=== PATIENT | female | born 1970 | race Caucasian/White ===

== ENCOUNTER 2018-11-05 16:30 | Inpatient (IN) | payer BC ==
[2018-11-05 22:35] VITALS: BMI 22.8
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
[2018-11-06] MEDS ORDERED: MAG HYDROX/AL HYDROX/SIMETH 30 ML UNIT-DOSE CUP PO PRN (00:05)
[2018-11-06] MEDS ORDERED: MAGNESIUM HYDROX 2400MG/30ML ORAL SUSPENSION 30 ML CUP PO PRN (00:05)
[2018-11-06] MEDS ORDERED: MELATONIN 5 MG TABLETS PO PRN (00:05)
[2018-11-06] MEDS ORDERED: hydrOXYzine HCL 25 MG TABLET (FP) PO PRN (00:05)
[2018-11-06] MEDS ORDERED: BISMUTH SUBSALICYLATE 524 MG/30 ML UD PO PRN (00:05)
[2018-11-06] MEDS ORDERED: guaiFENesin 200 MG/10 ML 10 ML UNIT-DOSE CUPS PO PRN (00:05)
[2018-11-06] MEDS ORDERED: MAGNESIUM CITRATE 300 ML BOTTLE PO PRN (00:05)
[2018-11-06] MEDS ORDERED: DICYCLOMINE HCL 10 MG CAPSULE PO PRN (00:05)
[2018-11-06] MEDS ORDERED: NALOXONE HCL 0.4 MG/ML VIAL IM PRN (00:05)
[2018-11-06] MEDS ORDERED: ACETAMINOPHEN 325 MG TABLET (FP) PO PRN ×2 (00:05)
[2018-11-06] MEDS ORDERED: METHADONE HCL 10 MG TABLET (FOR DETOX USE ONLY) PO ONE (00:05)
[2018-11-06] MEDS ORDERED: NICOTINE POLACRILEX 2 MG GUM BUC PRN (00:05)
[2018-11-06] MEDS ORDERED: ONDANSETRON *ODT* 4 MG TABLET SL PRN (00:05)
[2018-11-06] MEDS ORDERED: P-EPHED 60MG/TRIPROLIDI 2.5MG TABLET PO PRN (00:05)
[2018-11-06] MEDS ORDERED: MENTHOL/PHENOL 1 EACH UD MM PRN (00:05)
[2018-11-06] MEDS ORDERED: cloNIDine HCL 0.1 MG TABLET PO PRN (00:05)
[2018-11-06] MEDS: diazePAM 5 MG TABLET PO PRN ×3 (00:59→16:27)
[2018-11-06] MEDS: IBUPROFEN 400 MG TABLET (FP) PO PRN ×3 (05:39→22:20)
[2018-11-06] MEDS: diazePAM 5 MG TABLET PO SCH ×3 (05:40→22:20)
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
[2018-11-06] MEDS ORDERED: METHADONE HCL 10 MG TABLET PO ONE (10:00)
[2018-11-06] MEDS: levETIRAcetam 500 MG TABLET (FP) PO SCH (10:11)
[2018-11-06] MEDS: PRENATAL VITAMINS W/ FOLIC ACID TABLET (FP) PO SCH (10:12)
[2018-11-06] MEDS: NICOTINE 7 MG/24 HOURS TOPICAL PATCH TD SCH (10:12)
[2018-11-06] MEDS: FLUoxetine HCL 20 MG CAPSULE (FP) PO SCH (10:31)
--- NOTE | 2018-11-06 10:33 | EKG ---
Test Reason : Blood Pressure : / mmHG Vent. Rate : 080 BPM Atrial Rate : 080 BPM P-R Int : 114 ms QRS Dur : 078 ms QT Int : 400 ms P-R-T Axes : 000 063 031 degrees QTc Int : 461 ms NORMAL SINUS RHYTHM NORMAL ECG NO PREVIOUS ECGS AVAILABLE Confirmed by BRYAN LUZ MD ([id number]) on 11/06/2018 10:33:42 AM Referred By: ALFONSO Confirmed By:BRYAN LUZ MD
[2018-11-06 11:44] LABS: HEMATOCRIT 35.5 % (32.4-45.2); HEMOGLOBIN 11.4 GM/dL (10.7-15.3); MCH 27.5 pg (25.7-33.7); MCHC 32.1 g/dl (32.0-36.0); MEAN CELL VOLUME 85.7 fl (80-96); MEAN PLT VOLUME 10.1 fl (7.5-11.1); PLATELET COUNT 222 K/MM3 (134-434); RBC 4.14 M/mm3 (3.60-5.2); RDW 13.9 % (11.6-15.6); WHITE BLOOD COUNT 3.8 K/mm3 (4.0-10.0)
[2018-11-06 11:47] LABS: ALBUMIN 3.4 g/dl (3.4-5.0); BILIRUBIN,TOTAL 0.5 mg/dL (0.2-1); BLOOD UREA NITROGEN 21.8 mg/dL (7-18); POTASSIUM 4.4 mmol/L (3.5-5.1); TOT PROT 7.1 g/dl (6.4-8.2)
--- NOTE | 2018-11-06 12:43 | PN ---
[facility] CIWA - CIWA Score Nausea/Vomitin-No Nausea/No Vomiting Muscle Tremors: 4-Moderate,w/Arms Extend Anxiety: 3 Agitation: 4-Moderately Restless Paroxysmal Sweats: 3 Orientation: 0-Oriented Tacttile Disturbances: 0-None Auditory Disturbances: 0-None Visual Disturbances: 0-None Headache: 0-None Present CIWA-Ar Total Score: 14 BHS COWS - Scale Resting Pulse: 1= MD 81-100 Sweatin= Chills/Flushing Restless Observation: 1= Difficult to Sit Still Pupil Size: 0= Normal to Room Light Bone or Joint Aches: 2= Severe Diffuse Aches Runny Nose/ Eye Tearin= Runny Nose/Eyes GI Upset > 30mins: 2= Nausea/Diarrhea Tremor Observation of Outstretched Hands: 2= Slight Tremor Visible Yawning Observation: 2= >3x During Session Anxiety or Irritability: 2=Irritable/Anxious Goose Flesh Skin: 0=Smooth Skin COWS Score: 15 [facility] Progress Note (SOAP) Subjective: sweats shakes interrupted sleep body aches restless irritable Objective: 11/06/18 12:43 Vital Signs Temperature 97.9 F 11/06/18 09:45 Pulse Rate 84 11/06/18 09:45 Respiratory Rate 18 11/06/18 09:45 Blood Pressure 115/49 L 11/06/18 09:45 O2 Sat by Pulse Oximetry (%) Laboratory Tests 11/06/18 11/06/18 07:30 07:30 WBC 3.8 L RBC 4.14 Hgb 11.4 Hct 35.5 MCV 85.7 MCH 27.5 MCHC 32.1 RDW 13.9 Plt Count 222 MPV 10.1 Sodium 141 Potassium 4.4 Chloride 108 H Carbon Dioxide 28 Anion Gap 6 L BUN 21.8 H Creatinine 1.0 Est GFR (CKD-EPI)AfAm 76.61 Est GFR (CKD-EPI)NonAf 66.10 Random Glucose 113 H Calcium 9.0 Total Bilirubin 0.5 AST 62 H ALT 55 Alkaline Phosphatase 88 Total Protein 7.1 Albumin 3.4 aaox3 ambulating no acute distress Assessment: 11/06/18 12:43 withdrawals sx Plan: continue detox increase fluids
[2018-11-06] MEDS: METHOCARBAMOL 500 MG TABLET PO PRN ×2 (16:27→22:44)
[2018-11-06] MEDS ORDERED: THIAMINE HCL 100 MG TABLET (FP) PO SCH (22:00)
[2018-11-06] MEDS ORDERED: SUVOREXANT 10 MG TABLET PO PRN (22:00)
[2018-11-07] MEDS ORDERED: diazePAM 5 MG TABLET PO SCH (06:00)
[2018-11-07] MEDS: METHOCARBAMOL 500 MG TABLET PO PRN (06:02)
[2018-11-07] MEDS ORDERED: IBUPROFEN 600 MG TABLET (FP) PO PRN (08:24)
[2018-11-07] MEDS ORDERED: METHADONE HCL 10 MG TABLET (FOR DETOX USE ONLY) ONE (08:43)
[2018-11-07] MEDS ORDERED: METHADONE HCL 5 MG TABLET (FOR DETOX USE ONLY) ONE (08:43)
[2018-11-07 09:42] VITALS: BP 121/80; PULSE 84; TEMP 97.3
[2018-11-07] MEDS ORDERED: METHADONE (DETOX) 20 MG, METHADONE (DETOX) 5 MG PO ONE (10:00)
[2018-11-07] MEDS: levETIRAcetam 500 MG TABLET (FP) PO SCH (10:11)
[2018-11-07] MEDS: FLUoxetine HCL 20 MG CAPSULE (FP) PO SCH (10:11)
[2018-11-07] MEDS: PRENATAL VITAMINS W/ FOLIC ACID TABLET (FP) PO SCH (10:11)
[2018-11-07] MEDS: NICOTINE 7 MG/24 HOURS TOPICAL PATCH TD SCH (10:12)
--- NOTE | 2018-11-07 12:52 | PN ---
[facility] Progress Note Note: pt was admitted in withdrawals pt continue to c/o of withdrawals and aggressive symptomatic management attempted however, pt in spite of extensive motivational counseling regarding overdose, loss of tolerance and relapse pt chose to sign out AMA.
--- NOTE | 2018-11-07 12:54 | DS ---
[facility] Detox Discharge Summary Admission Date: 11/05/18 - History Present History: Cocaine Dependence, Opioid Dependence - Physical Exam Results Vital Signs: Vital Signs Temperature 97.3 F L 11/07/18 09:41 Pulse Rate 84 11/07/18 09:41 Respiratory Rate 18 11/07/18 09:41 Blood Pressure 121/80 11/07/18 09:41 O2 Sat by Pulse Oximetry (%) Pertinent Admission Physical Exam Findings: pt arrived in withdrawals Laboratory Tests 11/05/18 11/06/18 11/06/18 23:18 07:30 07:30 WBC 3.8 L RBC 4.14 Hgb 11.4 Hct 35.5 MCV 85.7 MCH 27.5 MCHC 32.1 RDW 13.9 Plt Count 222 MPV 10.1 Sodium 141 Potassium 4.4 Chloride 108 H Carbon Dioxide 28 Anion Gap 6 L BUN 21.8 H Creatinine 1.0 Est GFR (CKD-EPI)AfAm 76.61 Est GFR (CKD-EPI)NonAf 66.10 Random Glucose 113 H Calcium 9.0 Total Bilirubin 0.5 AST 62 H ALT 55 Alkaline Phosphatase 88 Total Protein 7.1 Albumin 3.4 POC Urine HCG, Qual Negative RPR Titer 11/06/18 07:30 WBC RBC Hgb Hct MCV MCH MCHC RDW Plt Count MPV Sodium Potassium Chloride Carbon Dioxide Anion Gap BUN Creatinine Est GFR (CKD-EPI)AfAm Est GFR (CKD-EPI)NonAf Random Glucose Calcium Total Bilirubin AST ALT Alkaline Phosphatase Total Protein Albumin POC Urine HCG, Qual RPR Titer Nonreactive pt chose to sign out and refused to continue with her detox - Treatment Hospital Course: Discharged Condition Good, Rehab Referral Accepted Patient has Accepted a Rehab Referral to: declined rehab; referral provided - Medication Discharge Medications: Ambulatory Orders levETIRAcetam [Keppra -] 1 tablet PO DAILY 11/05/18 - AMA Did Patient Leave Against Medical Advice: Yes
[2018-11-08] MEDS ORDERED: diazePAM 5 MG TABLET PO ONE (06:00)
[2018-11-08] MEDS ORDERED: METHADONE HCL 10 MG TABLET (FOR DETOX USE ONLY) PO ONE (10:00)
[2018-11-09] MEDS ORDERED: METHADONE (DETOX) 10 MG, METHADONE (DETOX) 5 MG PO ONE (10:00)
[2018-11-10] MEDS ORDERED: METHADONE HCL 10 MG TABLET (FOR DETOX USE ONLY) PO ONE (10:00)
[2018-11-11] MEDS ORDERED: METHADONE HCL 5 MG TABLET (FOR DETOX USE ONLY) PO ONE (06:00)
== END 2018-11-07 11:04 | disposition left against medical advice (07) | DRG 770 ==
LOC: YASAS 16:30 → Y3N 23:58 → Y6N 11-06 07:29
PROVIDERS: ADMIT Surgery; ATTEND Surgery
PROC: HZ2ZZZZ Detoxification Services for Substance Abuse Treatment (ICD-10-PCS; principal; 2018-11-05)
DX: F11.23 Opioid dependence with withdrawal (principal); F14.20 Cocaine dependence, uncomplicated; F17.210 Nicotine dependence, cigarettes, uncomplicated; F19.24 Other psychoactive substance dependence with psychoactive substance-induced mood disorder; F19.282 Other psychoactive substance dependence with psychoactive substance-induced sleep disorder; F32.9 Major depressive disorder, single episode, unspecified; G40.909 Epilepsy, unspecified, not intractable, without status epilepticus
CPT/HCPCS: 36415; 80053; 80177; 81025; 85027; 86480; 86593; 93005; 93010

== ENCOUNTER 2022-06-08 13:06 | Inpatient (IN) | payer OTHER ==
[2022-06-08 14:09] VITALS: BMI 19.3
[2022-06-08] MEDS ORDERED: POLYETHYLENE GLYCOL (HEALTHYLAX) 3350 17 GM PACKET PO PRN (16:25)
[2022-06-08] MEDS ORDERED: MELATONIN 5 MG TABLETS PO PRN (16:25)
[2022-06-08] MEDS ORDERED: P-EPHED 60MG/TRIPROLIDI 2.5MG TABLET PO PRN (16:25)
[2022-06-08] MEDS ORDERED: IBUPROFEN 600 MG TABLET (FP) PO PRN (16:25)
[2022-06-08] MEDS ORDERED: NALOXONE HCL (KLOXXADO) 8 MG SPRAY NS PRN (16:25)
[2022-06-08] MEDS ORDERED: guaiFENesin 600 MG TABLET.ER (FP) PO PRN (16:25)
[2022-06-08] MEDS ORDERED: ACETAMINOPHEN 325 MG TABLET (FP) PO PRN (16:25)
[2022-06-08] MEDS ORDERED: BENZOCAINE/MENTHOL (CHLORASEPTIC ) LOZENGE MM PRN (16:25)
[2022-06-08] MEDS ORDERED: NALOXONE HCL 0.4 MG/ML VIAL IM PRN (16:25)
[2022-06-08] MEDS ORDERED: BENZONATATE 200 MG CAPSULE PO PRN (16:25)
[2022-06-08] MEDS ORDERED: MAGNESIUM HYDROX 2400MG/30ML ORAL SUSPENSION 30 ML CUP PO PRN (16:25)
[2022-06-08] MEDS: THIAMINE HCL 100 MG TABLET (FP) PO SCH (21:49)
[2022-06-08] MEDS: levETIRAcetam 500 MG TABLET (FP) PO SCH (21:49)
[2022-06-08] MEDS: NICOTINE 10 MG CARTRIDGE (INHALER) IH PRN (22:39)
[2022-06-09] MEDS ORDERED: hydrOXYzine PAMOATE 25 MG CAPSULE (FP) PO ONE (09:15)
[2022-06-09] MEDS ORDERED: methaDONE HCL 40 MG DISPERSABLE TABLET PO ONE (09:15)
[2022-06-09] MEDS: PRENATAL VITAMINS W/ FOLIC ACID TABLET (FP) PO SCH (10:11)
[2022-06-09] MEDS: levETIRAcetam 500 MG TABLET (FP) PO SCH ×2 (10:12→21:57)
[2022-06-09 10:28] LABS: HEMATOCRIT 29.7 % (32.4-45.2); HEMOGLOBIN 9.6 GM/dL (10.7-15.3); MCH 25.1 pg (25.7-33.7); MCHC 32.1 g/dl (32.0-36.0); MEAN CELL VOLUME 78.2 fl (80-96); MEAN PLT VOLUME 9.3 fl (7.5-11.1); PLATELET COUNT 201 10^3/uL (134-434); RDW 16.7 % (11.6-15.6); WHITE BLOOD COUNT 4.1 K/mm3 (4.0-10.0)
[2022-06-09 10:40] LABS: EPI CELLS 19 /uL (0-25.1); HYALINE CASTS 2 /uL (0-3.1); URINE APPEARANCE CLEAR; URINE BACTERIA 51 /uL (0-1359); URINE BILIRUBIN NEGATIVE (NEGATIVE); URINE COLOR YELLOW; URINE GLUCOSE (UA) NEGATIVE (NEGATIVE); URINE KETONE TRACE (NEGATIVE); URINE LEUK ESTERASE 1+ (NEGATIVE); URINE NITRITE NEGATIVE (NEGATIVE); URINE PROTEIN NEGATIVE (NEGATIVE); URINE RBC 12 /uL (0-23.9); URINE WBC 32 /uL (0-25.8)
[2022-06-09 10:40] LABS: CALCIUM 8.6 mg/dL (8.5-10.1)
[2022-06-09 10:41] LABS: ALBUMIN 2.8 g/dl (3.4-5.0); BLOOD UREA NITROGEN 20.5 mg/dL (7-18)
[2022-06-09 10:44] LABS: BILIRUBIN,TOTAL 0.3 mg/dL (0.2-1); TOT PROT 6.4 g/dl (6.4-8.2)
[2022-06-09 10:58] LABS: SYPHILIS W/ RPR CONF NON-REACTIVE (NONREACTIVE)
[2022-06-09] MEDS: NICOTINE 10 MG CARTRIDGE (INHALER) IH PRN (11:19)
[2022-06-09] MEDS: FLUoxetine HCL 20 MG CAPSULE PO SCH (11:21)
[2022-06-09] MEDS: traZODone HCL 50 MG TABLET (FP) PO SCH (21:57)
[2022-06-09] MEDS: THIAMINE HCL 100 MG TABLET (FP) PO SCH (21:57)
[2022-06-10] MEDS: methaDONE HCL 40 MG DISPERSABLE TABLET PO SCH (06:07)
[2022-06-10] MEDS: MAG HYDROX/AL HYDROX/SIMETH 30 ML UNIT-DOSE CUP PO PRN (09:04)
[2022-06-10] MEDS: levETIRAcetam 500 MG TABLET (FP) PO SCH ×2 (10:00→21:28)
[2022-06-10] MEDS: PRENATAL VITAMINS W/ FOLIC ACID TABLET (FP) PO SCH (10:00)
[2022-06-10] MEDS: FLUoxetine HCL 20 MG CAPSULE PO SCH (10:00)
[2022-06-10] MEDS: LOPERAMIDE HCL 2 MG CAPSULE PO PRN ×2 (12:43→21:28)
[2022-06-10] MEDS: THIAMINE HCL 100 MG TABLET (FP) PO SCH (21:26)
[2022-06-10] MEDS: hydrOXYzine PAMOATE 25 MG CAPSULE (FP) PO PRN (21:27)
[2022-06-10] MEDS: traZODone HCL 50 MG TABLET (FP) PO SCH (21:28)
[2022-06-11] MEDS: methaDONE HCL 40 MG DISPERSABLE TABLET PO SCH (06:33)
[2022-06-11] MEDS: PRENATAL VITAMINS W/ FOLIC ACID TABLET (FP) PO SCH (09:42)
[2022-06-11] MEDS: FLUoxetine HCL 20 MG CAPSULE PO SCH (09:42)
[2022-06-11] MEDS: levETIRAcetam 500 MG TABLET (FP) PO SCH ×2 (09:43→21:33)
[2022-06-11] MEDS: LOPERAMIDE HCL 2 MG CAPSULE PO PRN (09:45)
[2022-06-11] MEDS: hydrOXYzine PAMOATE 25 MG CAPSULE (FP) PO PRN ×2 (09:47→21:34)
[2022-06-11] MEDS: THIAMINE HCL 100 MG TABLET (FP) PO SCH (21:33)
[2022-06-11] MEDS: traZODone HCL 50 MG TABLET (FP) PO SCH (21:33)
[2022-06-12] MEDS: methaDONE HCL 40 MG DISPERSABLE TABLET PO SCH (06:33)
[2022-06-12] MEDS: FERROUS SO4 325 MG TABLET (FP) PO SCH (07:29)
[2022-06-12] MEDS: LOPERAMIDE HCL 2 MG CAPSULE PO PRN ×2 (09:35→17:27)
[2022-06-12] MEDS: levETIRAcetam 500 MG TABLET (FP) PO SCH ×2 (09:35→21:03)
[2022-06-12] MEDS: PRENATAL VITAMINS W/ FOLIC ACID TABLET (FP) PO SCH (09:36)
[2022-06-12] MEDS: FLUoxetine HCL 20 MG CAPSULE PO SCH (09:36)
[2022-06-12] MEDS: traZODone HCL 50 MG TABLET (FP) PO SCH (21:03)
[2022-06-12] MEDS: THIAMINE HCL 100 MG TABLET (FP) PO SCH (21:03)
[2022-06-12] MEDS: hydrOXYzine PAMOATE 25 MG CAPSULE (FP) PO PRN (21:04)
[2022-06-13] MEDS: LOPERAMIDE HCL 2 MG CAPSULE PO PRN ×2 (00:01→06:52)
[2022-06-13] MEDS: methaDONE HCL 40 MG DISPERSABLE TABLET PO SCH (06:53)
[2022-06-13] MEDS: FLUoxetine HCL 20 MG CAPSULE PO SCH (09:46)
[2022-06-13] MEDS: levETIRAcetam 500 MG TABLET (FP) PO SCH ×2 (09:46→21:33)
[2022-06-13] MEDS: FERROUS SO4 325 MG TABLET (FP) PO SCH ×2 (09:47→17:06)
[2022-06-13] MEDS: DIPHENOXYLATE 2.5/ATROPINE.025 1 COMBO TABLET PO PRN ×2 (09:50→20:17)
[2022-06-13] MEDS: PRENATAL VITAMINS W/ FOLIC ACID TABLET (FP) PO SCH (09:50)
[2022-06-13] MEDS: traZODone HCL 50 MG TABLET (FP) PO SCH (21:33)
[2022-06-13] MEDS: THIAMINE HCL 100 MG TABLET (FP) PO SCH (21:33)
[2022-06-14] MEDS: methaDONE HCL 40 MG DISPERSABLE TABLET PO SCH (06:43)
[2022-06-14] MEDS: FERROUS SO4 325 MG TABLET (FP) PO SCH ×2 (07:47→17:02)
[2022-06-14] MEDS: FLUoxetine HCL 20 MG CAPSULE PO SCH (09:43)
[2022-06-14] MEDS: levETIRAcetam 500 MG TABLET (FP) PO SCH ×2 (09:43→21:38)
[2022-06-14] MEDS: PRENATAL VITAMINS W/ FOLIC ACID TABLET (FP) PO SCH (09:43)
[2022-06-14 10:20] LABS: HEMATOCRIT 35.8 % (32.4-45.2); HEMOGLOBIN 11.8 GM/dL (10.7-15.3); MCH 25.8 pg (25.7-33.7); MCHC 32.9 g/dl (32.0-36.0); MEAN CELL VOLUME 78.3 fl (80-96); MEAN PLT VOLUME 9.6 fl (7.5-11.1); PLATELET COUNT 232 10^3/uL (134-434); RBC 4.57 M/mm3 (3.60-5.2); RDW 16.7 % (11.6-15.6); WHITE BLOOD COUNT 4.4 K/mm3 (4.0-10.0)
[2022-06-14 10:40] LABS: ALBUMIN 3.2 g/dl (3.4-5.0); CALCIUM 9.4 mg/dL (8.5-10.1)
[2022-06-14 10:41] LABS: BLOOD UREA NITROGEN 32.6 mg/dL (7-18)
[2022-06-14 10:45] LABS: BILIRUBIN,TOTAL 0.3 mg/dL (0.2-1); TOT PROT 7.5 g/dl (6.4-8.2)
[2022-06-14] MEDS: THIAMINE HCL 100 MG TABLET (FP) PO SCH (21:38)
[2022-06-14] MEDS: traZODone HCL 50 MG TABLET (FP) PO SCH (21:38)
[2022-06-15] MEDS: methaDONE HCL 40 MG DISPERSABLE TABLET PO SCH (06:54)
[2022-06-15] MEDS: FERROUS SO4 325 MG TABLET (FP) PO SCH ×2 (07:36→17:56)
[2022-06-15] MEDS: FLUoxetine HCL 20 MG CAPSULE PO SCH (10:15)
[2022-06-15] MEDS: levETIRAcetam 500 MG TABLET (FP) PO SCH ×2 (10:15→21:45)
[2022-06-15] MEDS: PRENATAL VITAMINS W/ FOLIC ACID TABLET (FP) PO SCH (10:15)
[2022-06-15] MEDS: hydrOXYzine PAMOATE 25 MG CAPSULE (FP) PO PRN (21:45)
[2022-06-15] MEDS: traZODone HCL 50 MG TABLET (FP) PO SCH (21:45)
[2022-06-15] MEDS: THIAMINE HCL 100 MG TABLET (FP) PO SCH (21:45)
[2022-06-15] MEDS: MAG HYDROX/AL HYDROX/SIMETH 30 ML UNIT-DOSE CUP PO PRN (21:46)
[2022-06-15] MEDS: IBUPROFEN 400 MG TABLET (FP) PO PRN (21:46)
[2022-06-16] MEDS: FERROUS SO4 325 MG TABLET (FP) PO SCH ×2 (07:23→17:48)
[2022-06-16] MEDS: methaDONE HCL 40 MG DISPERSABLE TABLET PO SCH (07:24)
[2022-06-16] MEDS: PRENATAL VITAMINS W/ FOLIC ACID TABLET (FP) PO SCH (10:20)
[2022-06-16] MEDS: hydrOXYzine PAMOATE 25 MG CAPSULE (FP) PO PRN ×2 (10:20→21:26)
[2022-06-16] MEDS: FLUoxetine HCL 20 MG CAPSULE PO SCH (10:20)
[2022-06-16] MEDS: levETIRAcetam 500 MG TABLET (FP) PO SCH ×2 (10:20→21:25)
[2022-06-16] MEDS: IBUPROFEN 400 MG TABLET (FP) PO PRN (20:01)
[2022-06-16] MEDS: traZODone HCL 50 MG TABLET (FP) PO SCH (21:25)
[2022-06-16] MEDS: THIAMINE HCL 100 MG TABLET (FP) PO SCH (21:25)
[2022-06-16] MEDS: NICOTINE 10 MG CARTRIDGE (INHALER) IH PRN (21:28)
[2022-06-17] MEDS: methaDONE HCL 40 MG DISPERSABLE TABLET PO SCH (07:09)
[2022-06-17] MEDS: FERROUS SO4 325 MG TABLET (FP) PO SCH ×2 (07:45→17:05)
[2022-06-17] MEDS: PRENATAL VITAMINS W/ FOLIC ACID TABLET (FP) PO SCH (10:05)
[2022-06-17] MEDS: levETIRAcetam 500 MG TABLET (FP) PO SCH ×2 (10:05→21:38)
[2022-06-17] MEDS: FLUoxetine HCL 20 MG CAPSULE PO SCH (10:05)
[2022-06-17] MEDS: hydrOXYzine PAMOATE 25 MG CAPSULE (FP) PO PRN ×2 (10:06→21:39)
[2022-06-17] MEDS: traZODone HCL 50 MG TABLET (FP) PO SCH (21:38)
[2022-06-17] MEDS: THIAMINE HCL 100 MG TABLET (FP) PO SCH (21:38)
[2022-06-18] MEDS: methaDONE HCL 40 MG DISPERSABLE TABLET PO SCH (05:53)
[2022-06-18] MEDS: FERROUS SO4 325 MG TABLET (FP) PO SCH ×2 (07:52→17:12)
[2022-06-18] MEDS: hydrOXYzine PAMOATE 25 MG CAPSULE (FP) PO PRN ×2 (10:29→21:37)
[2022-06-18] MEDS: PRENATAL VITAMINS W/ FOLIC ACID TABLET (FP) PO SCH (10:29)
[2022-06-18] MEDS: FLUoxetine HCL 20 MG CAPSULE PO SCH (10:29)
[2022-06-18] MEDS: levETIRAcetam 500 MG TABLET (FP) PO SCH ×2 (10:29→21:37)
[2022-06-18] MEDS: METHOCARBAMOL 500 MG TABLET PO PRN ×2 (14:19→21:37)
[2022-06-18] MEDS: THIAMINE HCL 100 MG TABLET (FP) PO SCH (21:37)
[2022-06-18] MEDS: traZODone HCL 50 MG TABLET (FP) PO SCH (21:37)
[2022-06-19] MEDS: methaDONE HCL 40 MG DISPERSABLE TABLET PO SCH (06:44)
[2022-06-19] MEDS: FERROUS SO4 325 MG TABLET (FP) PO SCH ×2 (07:45→17:15)
[2022-06-19] MEDS: levETIRAcetam 500 MG TABLET (FP) PO SCH ×2 (09:54→21:42)
[2022-06-19] MEDS: FLUoxetine HCL 20 MG CAPSULE PO SCH (09:54)
[2022-06-19] MEDS: PRENATAL VITAMINS W/ FOLIC ACID TABLET (FP) PO SCH (09:54)
[2022-06-19] MEDS: METHOCARBAMOL 500 MG TABLET PO PRN ×2 (09:54→21:43)
[2022-06-19] MEDS: IBUPROFEN 400 MG TABLET (FP) PO PRN (15:27)
[2022-06-19] MEDS: traZODone HCL 100 MG TABLET (FP) PO SCH (21:42)
[2022-06-19] MEDS: hydrOXYzine PAMOATE 25 MG CAPSULE (FP) PO PRN (21:42)
[2022-06-19] MEDS: THIAMINE HCL 100 MG TABLET (FP) PO SCH (21:42)
[2022-06-20] MEDS: methaDONE HCL 40 MG DISPERSABLE TABLET PO SCH (06:59)
[2022-06-20] MEDS: FERROUS SO4 325 MG TABLET (FP) PO SCH ×2 (07:00→17:00)
[2022-06-20] MEDS: PRENATAL VITAMINS W/ FOLIC ACID TABLET (FP) PO SCH (10:35)
[2022-06-20] MEDS: FLUoxetine HCL 20 MG CAPSULE PO SCH (10:36)
[2022-06-20] MEDS: levETIRAcetam 500 MG TABLET (FP) PO SCH ×2 (10:36→21:51)
[2022-06-20] MEDS: METHOCARBAMOL 500 MG TABLET PO PRN ×2 (10:36→21:53)
[2022-06-20] MEDS: MAG HYDROX/AL HYDROX/SIMETH 30 ML UNIT-DOSE CUP PO PRN (11:53)
[2022-06-20] MEDS: hydrOXYzine PAMOATE 25 MG CAPSULE (FP) PO PRN (21:51)
[2022-06-20] MEDS: traZODone HCL 100 MG TABLET (FP) PO SCH (21:51)
[2022-06-20] MEDS: THIAMINE HCL 100 MG TABLET (FP) PO SCH (21:51)
[2022-06-21] MEDS: methaDONE HCL 40 MG DISPERSABLE TABLET PO SCH (06:53)
[2022-06-21] MEDS: FERROUS SO4 325 MG TABLET (FP) PO SCH ×2 (07:03→16:54)
[2022-06-21 07:27] VITALS: PULSE 70
[2022-06-21] MEDS: PRENATAL VITAMINS W/ FOLIC ACID TABLET (FP) PO SCH (09:55)
[2022-06-21] MEDS: FLUoxetine HCL 20 MG CAPSULE PO SCH (09:55)
[2022-06-21] MEDS: levETIRAcetam 500 MG TABLET (FP) PO SCH ×2 (09:55→21:30)
[2022-06-21] MEDS: METHOCARBAMOL 500 MG TABLET PO PRN ×2 (09:57→21:31)
[2022-06-21] MEDS ORDERED: PNEUMOC 20-VAL CONJ-DIP CRM/PF 0.5 ML SYRINGE IM ONE (12:00)
[2022-06-21] MEDS: THIAMINE HCL 100 MG TABLET (FP) PO SCH (21:30)
[2022-06-21] MEDS: traZODone HCL 100 MG TABLET (FP) PO SCH (21:30)
[2022-06-21] MEDS: hydrOXYzine PAMOATE 25 MG CAPSULE (FP) PO PRN (21:30)
[2022-06-22] MEDS: NICOTINE 10 MG CARTRIDGE (INHALER) IH PRN (06:13)
[2022-06-22] MEDS: methaDONE HCL 40 MG DISPERSABLE TABLET PO SCH (06:14)
[2022-06-22] MEDS: FERROUS SO4 325 MG TABLET (FP) PO SCH (07:04)
[2022-06-22 07:17] VITALS: BP 91/60; RESP 17; TEMP 97.7
[2022-06-22] MEDS: PRENATAL VITAMINS W/ FOLIC ACID TABLET (FP) PO SCH (10:50)
[2022-06-22] MEDS: METHOCARBAMOL 500 MG TABLET PO PRN (10:51)
[2022-06-22] MEDS: FLUoxetine HCL 20 MG CAPSULE PO SCH (10:51)
[2022-06-22] MEDS: levETIRAcetam 500 MG TABLET (FP) PO SCH (10:51)
== END 2022-06-22 12:45 | disposition home or self-care (01) | DRG 772 ==
LOC: YASAS 13:06 → Y5N 20:25
PROVIDERS: ADMIT Allergy & Immunology; ATTEND Psychiatry & Neurology Pain Medicine
PROC: HZ42ZZZ Group Counseling for Substance Abuse Treatment, Cognitive-Behavioral (ICD-10-PCS; principal; 2022-06-08)
DX: F11.20 Opioid dependence, uncomplicated (principal); F14.20 Cocaine dependence, uncomplicated; F13.20 Sedative, hypnotic or anxiolytic dependence, uncomplicated; F12.10 Cannabis abuse, uncomplicated; F17.210 Nicotine dependence, cigarettes, uncomplicated; F19.282 Other psychoactive substance dependence with psychoactive substance-induced sleep disorder; F41.9 Anxiety disorder, unspecified; F32.A Depression, unspecified; D64.9 Anemia, unspecified; R19.7 Diarrhea, unspecified; Z28.310 Unvaccinated for COVID-19; Z28.9 Immunization not carried out for unspecified reason
CPT/HCPCS: 36415; 80053; 81003; 85027; 86780; 86803; 87045; 87046; 87522; 90677; C9803-CS; U0003; U0005

== ENCOUNTER 2023-12-03 13:51 | Inpatient (IN) | payer OTHER ==
[2023-12-03 14:36] VITALS: BMI 19.3
[2023-12-03] MEDS ORDERED: BISMUTH SUBSALICYLATE 524 MG/30 ML PO PRN (15:42)
[2023-12-03] MEDS ORDERED: hydrOXYzine PAMOATE 25 MG CAPSULE (FP) PO PRN (15:42)
[2023-12-03] MEDS ORDERED: BENZOCAINE/MENTHOL (CHLORASEPTIC ) LOZENGE MM PRN (15:42)
[2023-12-03] MEDS ORDERED: MAG HYDROX/AL HYDROX/SIMETH 30 ML UNIT-DOSE CUP PO PRN (15:42)
[2023-12-03] MEDS ORDERED: NICOTINE POLACRILEX 2 MG GUM BUC PRN (15:42)
[2023-12-03] MEDS ORDERED: ONDANSETRON *ODT* 4 MG TABLET SL PRN (15:42)
[2023-12-03] MEDS ORDERED: LOPERAMIDE HCL 2 MG CAPSULE PO PRN (15:42)
[2023-12-03] MEDS ORDERED: POLYETHYLENE GLYCOL (HEALTHYLAX) 3350 17 GM PACKET PO PRN (15:42)
[2023-12-03] MEDS ORDERED: NALOXONE HCL 0.4 MG/ML VIAL IM PRN (15:42)
[2023-12-03] MEDS ORDERED: IBUPROFEN 400 MG TABLET (FP) PO PRN (15:42)
[2023-12-03] MEDS ORDERED: MAGNESIUM HYDROX 2400MG/30ML ORAL SUSPENSION 30 ML CUP PO PRN (15:42)
[2023-12-03] MEDS ORDERED: BENZONATATE 200 MG CAPSULE PO PRN (15:42)
[2023-12-03] MEDS ORDERED: DICYCLOMINE HCL 10 MG CAPSULE PO PRN (15:42)
[2023-12-03] MEDS ORDERED: NALOXONE (NARCAN) HCL 4 MG/0.1 ML SPRAY NS PRN (15:42)
[2023-12-03] MEDS ORDERED: SIMETHICONE 80 MG TAB.CHEW (FP) PO PRN (15:47)
[2023-12-03] MEDS ORDERED: diazePAM 5 MG TABLET ONE (17:18)
[2023-12-03] MEDS: diazePAM 5 MG TABLET PO SCH (17:21)
[2023-12-03] MEDS: FERROUS SO4 325 MG TABLET (FP) PO SCH (18:15)
[2023-12-03] MEDS: levETIRAcetam 500 MG TABLET (FP) PO SCH (22:15)
[2023-12-03] MEDS: MELATONIN 5 MG TABLETS PO SCH (22:16)
[2023-12-03] MEDS: THIAMINE 100 MG TABLET PO SCH (22:16)
[2023-12-03] MEDS: IBUPROFEN 600 MG TABLET (FP) PO PRN (22:17)
[2023-12-04] MEDS: guaiFENesin 600 MG TABLET.ER (FP) PO PRN (03:33)
[2023-12-04] MEDS ORDERED: methaDONE HCL 10 MG TABLET PO SCH ×2 (09:30→10:45)
[2023-12-04] MEDS: PRENATAL VITAMINS W/ FOLIC ACID TABLET (FP) PO SCH (10:27)
[2023-12-04] MEDS: methaDONE HCL 10 MG TABLET PO ONE (11:50)
[2023-12-04] MEDS: cloNIDine HCL 0.1 MG TABLET PO SCH (14:31)
[2023-12-04 14:40] LABS: HEMATOCRIT 32.9 % (32.4-45.2); MCH 23.7 pg (25.7-33.7); MCHC 30.4 g/dl (32.0-36.0); MEAN PLT VOLUME 10.1 fl (7.5-11.1); PLATELET COUNT 247 10^3/uL (134-434); RBC 4.21 M/mm3 (3.60-5.2); WHITE BLOOD COUNT 4.1 K/mm3 (4.0-10.0)
[2023-12-04 14:43] LABS: CHLORIDE 110 mmol/L (98-107); POTASSIUM 3.7 mmol/L (3.5-5.1); SODIUM 142 mmol/L (136-145)
[2023-12-04] MEDS: diazePAM 5 MG TABLET PO PRN (14:52)
[2023-12-04 14:53] LABS: ALBUMIN 2.6 g/dl (3.4-5.0)
[2023-12-04 14:54] LABS: ANION GAP 7 mmol/L (4-13); BILIRUBIN,TOTAL 0.1 mg/dL (0.2-1); BLOOD UREA NITROGEN 22.4 mg/dL (7-18); CO2 25 mmol/L (21-32); CREATININE 0.9 mg/dL (0.55-1.3); GLUCOSE,RANDOM 103 mg/dL (74-106); SGPT/ALT 21 U/L (13-61)
[2023-12-04 14:56] LABS: ALK PHOS 134 U/L (45-117); CALCIUM 8.5 mg/dL (8.5-10.1); TOT PROT 6.3 g/dl (6.4-8.2)
[2023-12-04 15:02] LABS: SGOT/AST 28 U/L (15-37)
[2023-12-05] MEDS: diazePAM 5 MG TABLET PO SCH (05:26)
[2023-12-05] MEDS: FLUoxetine HCL 20 MG CAPSULE PO SCH (09:41)
[2023-12-05] MEDS: methaDONE HCL 10 MG TABLET PO ONE (09:41)
[2023-12-06] MEDS ORDERED: cloNIDine HCL 0.1 MG TABLET PO PRN
[2023-12-06] MEDS: diazePAM 5 MG TABLET PO SCH (05:21)
[2023-12-06] MEDS ORDERED: methaDONE HCL 10 MG TABLET PO ONE (10:00)
[2023-12-07] MEDS: diazePAM 5 MG TABLET PO ONE (05:30)
[2023-12-07] MEDS ORDERED: methaDONE HCL 10 MG TABLET PO ONE (10:00)
[2023-12-07] MEDS: METHOCARBAMOL 500 MG TABLET PO PRN (16:52)
[2023-12-08] MEDS ORDERED: methaDONE HCL 10 MG TABLET PO ONE (10:00)
[2023-12-09] MEDS ORDERED: methaDONE HCL 10 MG TABLET PO ONE (10:00)
[2023-12-10] MEDS: ACETAMINOPHEN 325 MG TABLET (FP) PO PRN (21:42)
[2023-12-11 06:10] VITALS: RESP 16
[2023-12-11 12:29] VITALS: BP 112/78; PULSE 86; TEMP 97.8
== END 2023-12-11 14:18 | disposition other institution (70) | DRG 774 ==
LOC: YASAS 13:51 → Y3N 16:50
PROVIDERS: ADMIT Allergy & Immunology; ATTEND Surgery
PROC: HZ2ZZZZ Detoxification Services for Substance Abuse Treatment (ICD-10-PCS; principal; 2023-12-03)
DX: F10.230 Alcohol dependence with withdrawal, uncomplicated (principal); F10.20 Alcohol dependence, uncomplicated; F14.20 Cocaine dependence, uncomplicated; F19.282 Other psychoactive substance dependence with psychoactive substance-induced sleep disorder; F19.24 Other psychoactive substance dependence with psychoactive substance-induced mood disorder; F42.9 Obsessive-compulsive disorder, unspecified; F32.A Depression, unspecified; F43.10 Post-traumatic stress disorder, unspecified; G40.909 Epilepsy, unspecified, not intractable, without status epilepticus
CPT/HCPCS: 36415; 80053; 80305; 80307; 81025; 85027; 86780; 87811; 93005; 93010

== ENCOUNTER 2023-12-11 14:31 | Inpatient (IN) | payer OTHER ==
[2023-12-11] MEDS ORDERED: LOPERAMIDE HCL 2 MG CAPSULE PO PRN (16:34)
[2023-12-11] MEDS ORDERED: BENZOCAINE/MENTHOL (CHLORASEPTIC ) LOZENGE MM PRN (16:34)
[2023-12-11] MEDS ORDERED: BENZONATATE 200 MG CAPSULE PO PRN (16:34)
[2023-12-11] MEDS ORDERED: MAGNESIUM HYDROX 2400MG/30ML ORAL SUSPENSION 30 ML CUP PO PRN (16:34)
[2023-12-11] MEDS ORDERED: IBUPROFEN 400 MG TABLET (FP) PO PRN (16:34)
[2023-12-11] MEDS ORDERED: POLYETHYLENE GLYCOL (HEALTHYLAX) 3350 17 GM PACKET PO PRN (16:34)
[2023-12-11] MEDS ORDERED: NALOXONE (NARCAN) HCL 4 MG/0.1 ML SPRAY NS PRN (16:34)
[2023-12-11] MEDS ORDERED: NALOXONE HCL 0.4 MG/ML VIAL IVPUSH PRN (16:34)
[2023-12-11] MEDS ORDERED: guaiFENesin 600 MG TABLET.ER (FP) PO PRN (16:34)
[2023-12-11] MEDS: levETIRAcetam 500 MG TABLET (FP) PO SCH (21:42)
[2023-12-11] MEDS: THIAMINE 100 MG TABLET PO SCH (21:42)
[2023-12-11] MEDS: MELATONIN 5 MG TABLETS PO SCH (21:42)
[2023-12-11] MEDS: METHOCARBAMOL 500 MG TABLET PO PRN (21:43)
[2023-12-12] MEDS ORDERED: methaDONE HCL 10 MG TABLET PO SCH (06:00)
[2023-12-12] MEDS: PRENATAL VITAMINS W/ FOLIC ACID TABLET (FP) PO SCH (10:57)
[2023-12-12] MEDS: FLUoxetine HCL 20 MG CAPSULE PO SCH (10:57)
[2023-12-12] MEDS: NICOTINE 14 MG/24 HOURS TOPICAL PATCH TD SCH (10:58)
[2023-12-12] MEDS: NICOTINE POLACRILEX 2 MG GUM BUC PRN (10:59)
[2023-12-12] MEDS: hydrOXYzine PAMOATE 25 MG CAPSULE (FP) PO PRN (11:09)
[2023-12-12] MEDS: SUVOREXANT 10 MG TABLET PO PRN (22:00)
[2023-12-12] MEDS: MAG HYDROX/AL HYDROX/SIMETH 30 ML UNIT-DOSE CUP PO PRN (23:26)
[2023-12-13] MEDS ORDERED: TUBERCULIN PPD 5 TU/0.1ML VIAL ID ONE (13:49)
[2023-12-13] MEDS: TUBERCULIN PPD 5 TU/0.1ML VIAL ID ONE (14:15)
[2023-12-15] MEDS: ACETAMINOPHEN 325 MG TABLET (FP) PO PRN (09:55)
[2023-12-19] MEDS ORDERED: methaDONE HCL 10 MG TABLET PO SCH (11:15)
[2023-12-23] MEDS: GABAPENTIN 300 MG CAPSULE PO SCH (13:32)
[2023-12-23] MEDS: FERROUS SO4 325 MG TABLET (FP) PO SCH (13:32)
[2023-12-23] MEDS: FLUCONAZOLE 50 MG TABLET PO ONE (13:33)
[2023-12-23 17:40] LABS: EPI CELLS 3 /uL (0-25.1); HYALINE CASTS 0 /uL (0-3.1); URINE APPEARANCE CLEAR; URINE BACTERIA 30 /uL (0-1359); URINE BILIRUBIN NEGATIVE (NEGATIVE); URINE COLOR YELLOW; URINE GLUCOSE (UA) NEGATIVE (NEGATIVE); URINE KETONE NEGATIVE (NEGATIVE); URINE LEUK ESTERASE 2+ (NEGATIVE); URINE NITRITE NEGATIVE (NEGATIVE); URINE PROTEIN NEGATIVE (NEGATIVE); URINE RBC 5 /uL (0-23.9); URINE UROBILINOGEN 0.2 mg/dL (0.2-1.0); URINE WBC 23 /uL (0-25.8)
[2023-12-24] MEDS ORDERED: methaDONE HCL 40 MG DISPERSABLE TABLET PO SCH (11:30)
[2023-12-24] MEDS: SUVOREXANT 15 MG TABLET PO PRN (21:13)
[2023-12-24] MEDS: PRAZOSIN HCL 1 MG CAPSULE PO SCH (21:59)
[2023-12-26] MEDS: SUVOREXANT 20 MG TABLET PO PRN (21:27)
[2023-12-28] MEDS: IBUPROFEN 600 MG TABLET (FP) PO PRN (09:35)
[2023-12-29] MEDS: SUVOREXANT 20 MG TABLET PO PRN (21:42)
[2023-12-31] MEDS: FLUCONAZOLE 50 MG TABLET PO ONE (16:57)
[2023-12-31 22:12] VITALS: RESP 18
[2024-01-01 06:31] VITALS: BP 116/67; PULSE 80; TEMP 98
[2024-01-01] MEDS: NALOXONE (NYS OPIOID OVERDOSE PROGRAM) 4 MG/0.1 ML SPRAY NS PRN (09:31)
== END 2024-01-01 10:35 | disposition home or self-care (01) | DRG 772 ==
LOC: YASAS 14:31 → Y3NR 14:33 → Y5N 12-13 10:59
PROVIDERS: ADMIT Psychiatry & Neurology Pain Medicine; ATTEND Psychiatry & Neurology Pain Medicine
PROC: HZ42ZZZ Group Counseling for Substance Abuse Treatment, Cognitive-Behavioral (ICD-10-PCS; principal; 2023-12-11)
DX: F11.20 Opioid dependence, uncomplicated (principal); F10.20 Alcohol dependence, uncomplicated; F14.20 Cocaine dependence, uncomplicated; F12.20 Cannabis dependence, uncomplicated; F17.210 Nicotine dependence, cigarettes, uncomplicated; F19.282 Other psychoactive substance dependence with psychoactive substance-induced sleep disorder; F19.24 Other psychoactive substance dependence with psychoactive substance-induced mood disorder; F41.9 Anxiety disorder, unspecified; F32.A Depression, unspecified; G40.909 Epilepsy, unspecified, not intractable, without status epilepticus; N76.0 Acute vaginitis; Z59.02 Unsheltered homelessness
CPT/HCPCS: 36415; 81003; 86803; 87086; 87522; 93005; 93010